=== PATIENT | female | born 1955 | race African-American/Black ===

== ENCOUNTER 2020-09-07 22:38 | Emergency (ER) | payer OTHER, MEDICAID ==
[~2020-09-07] VITALS: Ht 165.1 cm; Wt 82.0 kg
[2020-09-08] MEDS ORDERED: HYDROCHLOROTHIAZIDE 25MG TABLET PO ONE (00:45)
[2020-09-08] MEDS ORDERED: IBUPROFEN 600MG TABLET PO ONE (00:45)
[2020-09-08] MEDS ORDERED: ACETAMINOPHEN 325MG TABLET PO ONE (00:45)
[2020-09-08] MEDS ORDERED: ACET-2708 MT (02:32)
[2020-09-08] MEDS ORDERED: NAPR-1176 MT (02:51)
[2020-09-08 03:21] VITALS: BP 161/83
== END 2020-09-08 03:20 | disposition home or self-care (01) ==
LOC: ER 22:38
DX: M25.572 Pain in left ankle and joints of left foot (principal); M19.90 Unspecified osteoarthritis, unspecified site; I10 Essential (primary) hypertension; H54.8 Legal blindness, as defined in USA; W01.0XXA Fall on same level from slipping, tripping and stumbling without subsequent striking against object, initial encounter; Y93.9 Activity, unspecified; Y92.9 Unspecified place or not applicable; Z88.0 Allergy status to penicillin
CPT/HCPCS: 73610; 73630; 93005; 99284

== ENCOUNTER 2024-03-11 14:58 | Emergency (ER) | payer MEDICAID, OTHER ==
[~2024-03-11] VITALS: Ht 167.6 cm; Wt 114.0 kg
[~2024-03-11 14:58] MED LIST: ACET-2708 MT; NAPR-1176 MT
[2024-03-11 15:02] VITALS: O2SAT 100
[2024-03-11] MEDS ORDERED: DICYCLOMINE 10 MG/5 ML ORAL SYR PO STA ×2 (15:18→15:52)
[2024-03-11] MEDS: FAMOTIDINE 20MG TABLET PO ONE (16:03)
[2024-03-11] MEDS: MAGNESIUM/ALUMINUM HYDROXIDE/SIMETHICONE 30ML UDC PO STA (16:03)
[2024-03-11] MEDS: ONDANSETRON HCL 4MG/2ML INJ IV STA (16:03)
[2024-03-11] MEDS: DICYCLOMINE 10 MG/5 ML ORAL SYR PO NR (16:03)
[2024-03-11 16:15] LABS: CHLORIDE 109 mEq/L (98-107); POTASSIUM 3.8 mEq/L (3.5-5.1); SODIUM 141 mEq/L (136-145)
[2024-03-11 16:16] LABS: CARBON DIOXIDE 20 mEq/L (21-32)
[2024-03-11 16:17] LABS: CALCIUM 9.3 mg/dL (8.7-10.4)
[2024-03-11 16:21] LABS: GLUCOSE 98 mg/dL (70-105)
[2024-03-11 16:22] LABS: UREA NITROGEN BLOOD 8 mg/dL (9-23)
[2024-03-11 16:23] LABS: ALANINE AMINOTRANSFERASE 12 IU/L (10-49); ALBUMIN 4.4 g/dL (3.2-4.8); ASPARTATE AMINOTRANSFERASE 18 IU/L (<34)
[2024-03-11 16:24] LABS: BILIRUBIN TOTAL 0.3 mg/dL (0.1-1.0); PROTEIN TOTAL 8.2 g/dL (6.0-8.3)
[2024-03-11 16:31] LABS: INR 0.9; PROTHROMBIN TIME 10.5 sec (9.6-11.0)
[2024-03-11 16:52] LABS: BILIRUBIN DIRECT < 0.1 mg/dL (<=3.0); TROPONIN I HIGH SENSITIVITY < 4 ng/L (3.0-34)
[2024-03-11] MEDS ORDERED: FAMOTIDINE 20MG/2ML VIAL IV ONE (17:00)
[2024-03-11] MEDS ORDERED: DIPHENHYDRAMINE 50MG/ML VIAL IV ONE (17:00)
[2024-03-11] MEDS ORDERED: METHYLPREDNISOLONE SOD SUCC 125MG/2ML (ACT-O-VIAL) IV ONE (17:00)
[2024-03-11 17:24] LABS: CLARITY URINE CLEAR (CLEAR); COLOR URINE DARK YELLOW (YELLOW); GLUCOSE URINE NEGATIVE (NEGATIVE); KETONES URINE NEGATIVE (NEGATIVE); LEUKOCYTE ESTERASE URINE NEGATIVE (NEGATIVE); NITRITE URINE NEGATIVE (NEGATIVE); OCCULT BLOOD URINE NEGATIVE (NEGATIVE); PROTEIN URINE NEGATIVE (NEGATIVE); SPECIFIC GRAVITY URINE 1.015 (1.005-1.030); UROBILINOGEN URINE 0.2 E.U./dL (0.2-1.0)
[2024-03-11 17:39] LABS: BASOPHILS % 0.7 % (0.0-2.0); EOSINOPHILS % 1.5 % (0.0-5.0); HEMATOCRIT. 40.8 % (36.0-48.0); HEMOGLOBIN. 12.9 g/dL (12.0-16.0); LYMPHOCYTES % 20.1 % (20.0-50.0); MEAN CORPUSCULAR HEMOGLOBIN 28.7 pg (28.0-32.0); MEAN CORPUSCULAR HGB CONC 31.5 g/dL (31.0-37.0); MEAN CORPUSCULAR VOLUME 91.1 fL (81.0-99.0); MEAN PLATELET VOLUME 8.6 fl (7.4-10.4); MONOCYTES % 6.1 % (2.0-8.0); NEUTROPHILS % 71.6 % (40.0-76.0); PLATELET 282 x1000/uL (130-400); RED BLOOD CELL COUNT 4.48 mill/uL (4.2-5.4); RED CELL DISTRIBUTION WIDTH 15.5 % (11.6-14.6); WHITE BLOOD COUNT 9.1 x1000/uL (4.5-11.0)
[2024-03-11] MEDS: DIPHENHYDRAMINE 50MG/ML VIAL IV NR (18:52)
[2024-03-11] MEDS: FAMOTIDINE 20MG/2ML VIAL IV NR (18:52)
[2024-03-11] MEDS: METHYLPREDNISOLONE SOD SUCC 125MG/2ML (ACT-O-VIAL) IV NR (18:53)
[2024-03-11] MEDS: HYDRALAZINE 20MG/ML VIAL IV ONE (20:55)
[2024-03-11 21:04] VITALS: BP 175/95; PULSE 78; RESP 18; TEMP 37.3; O2SAT 98
[2024-03-11] MEDS ORDERED: ONDA-239 PO (21:14)
== END 2024-03-11 21:41 | disposition home or self-care (01) ==
LOC: ER 14:58
DX: K52.9 Noninfective gastroenteritis and colitis, unspecified (principal); I10 Essential (primary) hypertension; Z88.0 Allergy status to penicillin; Z79.899 Other long term (current) drug therapy
CPT/HCPCS: 80076; 80048; 81003; 83690; 85025; 85610; 84484; 36415; 74176; 93005; 96374; 96375; 99285; J1200; J3490; J0360; J2919; J2405; Z7610 ×3